=== PATIENT | male | born 1975 | race Caucasian/White ===

== ENCOUNTER 2019-07-18 08:28 | Observation (INO) ==
[2019-07-18] MEDS ORDERED: ZOFRAN IV ONE ×2 (08:50→09:47)
[2019-07-18] MEDS ORDERED: NS 1,000 ML IV ONE (08:50)
[2019-07-18 09:11] LABS: BASO# 0.02 X1000 (0.0-0.2); BASO% 0.1 % (0.0-0.8); EOS# 0.03 X1000 (0.0-0.7); EOS% 0.2 % (0.0-10.0); HEMATOCRIT 43.1 % (42.0-52.0); HEMOGLOBIN 14.7 g/dL (14.0-18.0); IMM GRAN# 0.02 X1000 (0.0-0.04); IMM GRAN% 0.1 % (0.0-0.5); LYMPH# 1.31 X1000 (1.2-3.4); LYMPH% 9.3 % (20.5-51.1); MCH 30.4 PG (27-31); MCHC 34.1 g/dL (33-37); MONO# 0.83 X1000 (0.11-0.59); MONO% 5.9 % (1.7-9.3); MPV 12.4 FL (7.4-10.4); NEUT# 11.84 X1000 (1.4-6.5); NEUT% 84.4 % (42.2-75.2); PLT 212 X1000 (130-400); RBC 4.84 XMIL (4.7-6.1); RDW 13.1 % (11.5-14.5); WBC 14.05 X1000 (4.8-10.8)
[2019-07-18 09:41] LABS: AGAP 15; ALBUMIN 4.6 g/dL (3.5-5.0); ALKALINE PHOSPHATASE 66 U/L (32-122); BUN 14 mg/dL (8-22); CALCIUM 10.2 mg/dL (8.8-10.2); CHLORIDE 101 mmol/L (98-107); COSMO 282; CREATININE 0.9 mg/dL (0.7-1.2); ESTIMATED GFR > 60; GLUCOSE 132 mg/dL (70-104); GOT 30 U/L (10-34); GPT 25 U/L (10-44); LIPASE 40 U/L (13-60); POTASSIUM 3.5 mmol/L (3.5-5.1); SODIUM 140 mmol/L (136-145); TCO2 25 mmol/L (25-35); TOTAL PROTEIN 7.1 g/dL (6.3-8.3)
[2019-07-18 09:47] LABS: BILIRUBIN URINE NEGATIVE (NEGATIVE); BLOOD URINE NEGATIVE (NEGATIVE); CLARITY SL. CLOUDY (CLEAR); COLOR YELLOW; GLUCOSE URINE NEGATIVE (NEGATIVE); KETONE URINE 2+(Moderate) mg/dL (NEGATIVE); LEUKOCYTES URINE 1+ (NEGATIVE); NITRITE URINE NEGATIVE (NEGATIVE); PROTEIN URINE 1+(30 mg/dL) mg/dL (NEGATIVE); UROBILINOGEN URINE 4 mg/dL
[2019-07-18 09:49] LABS: URINE BACTERIA 2+ /HFP; URINE CAST NONE SEEN /LPF; URINE CRYSTAL NONE SEEN /HPF; URINE EPITHELIAL CELLS <10 /HPF (<10); URINE RBC <10 /HPF (<10); URINE SOURCE CLEAN CATCH; URINE YEAST NONE SEEN /HPF
[2019-07-18 10:04] LABS: UR AMPHETAMINES QUAL NONE DETECTED (NONE DETECT); UR BARBITUATES QUAL PRESUMPTIVE POSITIVE (NONE DETECT); UR BENZODIAZEPIN QUAL NONE DETECTED (NONE DETECT); UR CANNABINOIDS QUAL PRESUMPTIVE POSITIVE (NONE DETECT); UR COCAINE QUAL NONE DETECTED (NONE DETECT); UR METHADONE QUAL NONE DETECTED (NONE DETECT); UR METHAMPHETAMINE QUAL NONE DETECTED (NONE DETECT); UR OPIATES QUAL NONE DETECTED (NONE DETECT); UR OXYCODONE QUAL NONE DETECTED (NONE DETECT); UR PCP QUAL NONE DETECTED (NONE DETECT); UR PROPOXYPHENE QUAL NONE DETECTED (NONE DETECT); UR TCA QUAL NONE DETECTED (NONE DETECT)
--- NOTE | 2019-07-18 10:40 | PROVIDER DOCUMENTATION ---
This chart was entered by Abigail Badillo Scribe, acting as scribe for Mau Moore MD. HPI-Abdominal Pain/GI Problem - General Chief Complaint: Nausea/Vomiting Stated Complaint: THROWING UP Time Seen by Provider: 07/18/19 08:50 Source: patient, family (mother and stepfather) Allergies/Adverse Reactions: Patient Allergies Allergy/AdvReac Type Severity Reaction Status Date / Time Penicillins Allergy Severe ANAPHYLAXIS Verified 07/18/19 09:02 Home Medications: Home Medication List Medication Instructions Recorded Confirmed Last Taken Type Lisinopril/Hydrochlorothiazide 1 each PO DAILY 04/15/14 07/18/19 Unknown History [Lisinopril-Hctz 20-12.5 mg Tab] Omeprazole 40 mg PO DAILY 04/15/14 07/18/19 Unknown History Zoloft 200 mg PO DAILY 04/15/14 07/18/19 Unknown History Famotidine [Pepcid] 20 mg PO DAILY #30 tab 07/16/19 07/18/19 Unknown Rx Ondansetron Odt [Zofran Odt] 4 mg PO Q6H PRN PRN #15 tab 07/16/19 07/18/19 Un known Rx Pantoprazole [Protonix] 40 mg PO DAILY@0700 #30 tab 07/16/19 07/18/19 Unknown Rx Pramipexole [Mirapex] 1 mg PO HS 07/16/19 07/18/19 Unknown History - History of Present Illness-ABD Nature of Presenting Problems: 43 yowm presents to the ed with c/o n/v/d. pt was seen in ed with same complaint on 07/16/19. mother is with pt and sts pt is under a lot of stress going through a divorce and has been drinking daily. pt is an alcoholic per mother, she is also fearful that pt is taking drugs but does not know what kind. pt denies this and sts has not been drinking or doing drugs. pt is anxious on exam. pt has noted bradycardia in 40's duriong ed stay Abdominal Pain Onset Location: reports: generalized abdomen Quality of Pain: reports: cramping Severity in ED: reports: moderate Onset/Duration: reports: other (07/16/19) Timing: reports: still present, intermittent Activities at Onset: reports: light activity Modifying Factors: improves with: nothing Associated Symptoms: reports: diarrhea, malaise, nausea, vomiting. denies: back/neck pain, chest pain, diaphoresis, fever/chills Last BM: this morning Dark Stools Present?: reports: none noticed Rectal Bleeding: reports: none # of Diarrhea Episodes: 1 Rectal Pain: reports: none # of Vomiting Episodes: 20 (in last 24hrs) Emesis Description: reports: none Bruising or Bleeding Gums?: No Similar Symptoms Previously?: Yes Recently seen or treated by another doctor?: Yes (seen in ed 07/16/19) Review of Systems - Adult - REVIEW OF SYSTEMS - ADULT Constitutional: denies: chills, fever Eyes: reports: no symptoms reported Ears, Nose, Mouth & Throat: reports: no symptoms reported Cardiovascular: denies: chest pain, edema, palpitations Respiratory: denies: cough, shortness of breath, wheezing Gastrointestinal: reports: see HPI, abdominal pain, diarrhea, nausea, vomiting Genitourinary: reports: no symptoms reported Musculoskeletal: denies: back pain, neck pain Integumentary: reports: no symptoms reported Neurological: reports: no symptoms reported Psychiatric: reports: see HPI, alcohol/drug dependence (per mother) Endocrine: reports: no symptoms reported Hematologic/Lymphatic: reports: no symptoms reported Allergic/Immunologic: reports: no symptoms reported All Other Systems: Reviewed and Negative Past History - Adult - PAST MEDICAL HISTORY-ADULT Review of Records: reports: Old Records Reviewed, Nursing Assessment Review, Medications Reviewed, Social history reviewed & non-contributory. Major Childhood Illnesses: reports: denies history Cardiovascular: reports: HTN Respiratory: reports: denies history Gastrointestinal: reports: denies history Genitourinary: reports: denies history Musculoskeletal: reports: denies history Hand Dominance: Right Handed Neurological: reports: denies history Psychiatric: reports: depression Endocrine/Immune: reports: denies history Other Conditions: reports: denies history - PRIOR SURGERIES/PROCEDURES Surgical/Procedure History: reports: orthopedic (extremity) - IMMUNIZATION STATUS Childhood Immunizations: See Nurse Assessment Flu Vaccine: See Nurse Assessment - FAMILY HISTORY Family History: reviewed, not pertinent - SOCIAL HISTORY Smoking: cigarettes, less than 1 pack/day Provider spent 3-5 mins advising pt. on dangers of tobacco.: Discussed manners to quit use, and f/u contacts for add'l counseling. Substance Use: alcohol (etoh abuse by mother), other (mother sts she is fearful he is doing drugs as well) Alcohol Use Frequency: every day (per mother but pt denies) Living Situation: alone Physical Exam-General - PHYSICAL EXAM-ADULT Initial Vital Signs Reviewed: Yes - CONSTITUTIONAL General Appearance: alert, mild distress, anxious - EYES Eyes: PERRL/EOMI, pale conjunctivae - HEAD, EARS, NOSE, MOUTH & THROAT HENMT: negative: moist mucous membranes (dry oral) - NECK Neck: non-tender, full range of motion, normal inspection - RESPIRATORY Respiratory: chest non-tender, lungs clear, normal breath sounds - CARDIOVASCULAR Cardiovascular: normal peripheral pulses, bradycardia (43) - GASTROINTESTINAL (ABDOMEN) Abdominal Exam: normal bowel sounds, non tender (pt denies any tenderness or pain on exam), soft, no organomegaly, no pulsatile mass, other (c/o nausea) - GENITOURINARY Male Genitalia: deferred Rectal Exam: deferred Hemoccult Exam: deferred - LYMPHATIC Lymphatic: no adenopathy - MUSCULOSKELETAL Back Exam: normal inspection, no CVA tenderness, no vertebral tenderness Extremity: normal range of motion, non-tender, normal gait - SKIN Integumentary: normal color, normal turgor, warm/dry - NEUROLOGIC Neurologic: grossly normal - PSYCHIATRIC Psych/Mental Status: normal thought content, normal thought process, oriented x 3, anxious Progress - PLAN OF CARE/RESULTS Progress/Plan/Lab Results: Vital Signs - 8 hr 07/18/19 08:34 07/18/19 09:00 07/18/19 09:15 Temperature 98 F Pulse Rate 43 L 54 L 43 L Respiratory Rate 18 20 14 Blood Pressure 172/89 172/71 158/95 O2 Sat by Pulse Oximetry 100 97 07/18/19 09:30 Temperature Pulse Rate 38 L Respiratory Rate 18 Blood Pressure 151/97 O2 Sat by Pulse Oximetry 100 Laboratory Results - last 24 hr 07/18/19 07/18/19 07/18/19 08:45 08:45 08:45 WBC 14.05 H RBC 4.84 Hgb 14.7 Hct 43.1 MCV 89.0 MCH 30.4 MCHC 34.1 RDW Std Deviation 13.1 Plt Count 212 MPV 12.4 H Immature Gran % (Auto) 0.1 Neut % (Auto) 84.4 H Lymph % (Auto) 9.3 L [place] % (Auto) 5.9 Eos % (Auto) 0.2 Baso % (Auto) 0.1 Immature Gran # (Auto) 0.02 Neut # (Auto) 11.84 H Lymph # (Auto) 1.31 [place] # (Auto) 0.83 H Eos # (Auto) 0.03 Baso # (Auto) 0.02 Sodium Potassium Chloride Carbon Dioxide Anion Gap BUN Creatinine Estimated GFR/1.73 m2 BUN/Creatinine Ratio Glucose Calculated Osmolality Calcium Total Bilirubin AST ALT Alkaline Phosphatase Troponin T < 0.010 Total Protein Albumin Globulin Albumin/Globulin Ratio Amylase 83 Lipase Urine Source Urine Color Urine Clarity Urine pH Ur Specific [place] Urine Protein Urine Ketones Urine Blood Urine Nitrite Urine Bilirubin Urine Urobilinogen Urine Microscopic RBC Urine WBC Urine Microscopic WBC Ur Epithelial Cells Urine Crystals Urine Bacteria Urine Casts Urine Yeast Urine Glucose 07/18/19 07/18/19 08:45 09:35 WBC RBC Hgb Hct MCV MCH MCHC RDW Std Deviation Plt Count MPV Immature Gran % (Auto) Neut % (Auto) Lymph % (Auto) [place] % (Auto) Eos % (Auto) Baso % (Auto) Immature Gran # (Auto) Neut # (Auto) Lymph # (Auto) [place] # (Auto) Eos # (Auto) Baso # (Auto) Sodium 140 Potassium 3.5 Chloride 101 Carbon Dioxide 25 Anion Gap 15 BUN 14 Creatinine 0.9 Estimated GFR/1.73 m2 > 60 BUN/Creatinine Ratio 16 Glucose 132 H Calculated Osmolality 282 Calcium 10.2 Total Bilirubin 1.30 H AST 30 ALT 25 Alkaline Phosphatase 66 Troponin T Total Protein 7.1 Albumin 4.6 Globulin 3.0 Albumin/Globulin Ratio 2.0 Amylase Lipase 40 Urine Source CLEAN CATCH Urine Color YELLOW Urine Clarity SL. CLOUDY A Urine pH 8.0 Ur Specific [place] 1.020 Urine Protein 1+(30 mg/dL) A Urine Ketones 2+(Moderate) A Urine Blood NEGATIVE Urine Nitrite NEGATIVE Urine Bilirubin NEGATIVE Urine Urobilinogen 4 Urine Microscopic RBC <10 Urine WBC 1+ A Urine Microscopic WBC 10-20 A Ur Epithelial Cells <10 Urine Crystals NONE SEEN Urine Bacteria 2+ Urine Casts NONE SEEN Urine Yeast NONE SEEN Urine Glucose NEGATIVE Orders Category Date Time Status Saline Loc NOW Care 07/18/19 08:[address] ABD/PELVIS W/IV CONT ONLY [CT] Stat Exams 07/18/19 09:49 Ordered AMYLASE [CHEM] Stat Lab 07/18/19 08:45 Completed CBC WITH ELECTRONIC DIFF [HEME] Stat Lab 07/18/19 08:45 Completed COMPREHENSIVE METABOLIC PANEL [CHEM] Stat Lab 07/18/19 08:45 Completed LIPASE [CHEM] Stat Lab 07/18/19 08:45 Completed TROPONIN T Stat Lab 07/18/19 08:[address] W/POSS RFLX CULT [URINALYSIS] Stat Lab 07/18/19 09:35 Completed URINE CULTURE [RM] Routine Lab 07/18/19 09:49 Ordered URINE DRUG SCREEN PL Stat Lab 07/18/19 09:46 Ordered 0.9% Sodium Chloride Inj [Ns] 1,000 ml Med 07/18/19 08:50 Discontinued IV 999 mls/hr Ondansetron [Zofran] Med 07/18/19 08:50 Discontinued 4 mg IV NOW ONE Ondansetron [Zofran] Med 07/18/19 09:47 Discontinued 4 mg IV NOW ONE EKG [EKG] Stat Ther 07/18/19 08:38 Ordered Result Diagrams: 07/18/19 08:45 07/18/19 08:45 - REASSESSMENT Reassessment #1 Time Reassessed: 10:03 Status: improving (dr at bedside and speaking with pt and family about poc) - EKG 1 Time of EKG reading by physician:: 08:54 EKG Read and Signed by:: Mau Moore EKG Interpretation (*Must complete 3 of following elements*): Normal (borderline) Rate: 47 Rhythm: sinus bradycardia [place]: normal QRS: normal RI Interval: normal ST Wave: normal Comments: possible left atrial enlargement - CT/MRI 1 CT Study: Abdomen, Pelvis Impression: See EMR Report (XAM: CT ABD/PELVIS W/IV CONT ONLY - 07/18/2019 HISTORY: nausea/vomiting TECHNIQUE: CT abdomen/pelvis with intravenous contrast COMPARISON: None. FINDINGS: The visualized lung bases are clear. There is mild hepatosplenomegaly. There is no discrete focal hepatic or splenic lesion identified, other than splenic calcified granulomas from old granulomatous disease. There is nonspecific mild fullness of the adrenal glands. There are no abnormalities of the pancreas identified. There are no calcified gallstones or pericholecystic inflammation identified. There is a 3.4 x 3.1 cm lobulated low-density lesion at the lower left kidney. While this could represent a cyst, with lobulated margins are somewhat unusual for recent is. There are scattered smaller low-density lesions compatible with cysts elsewhere in the bilateral kidneys. There is no hydronephrosis. The urinary bladder sorensen appear thickened diffusely. There are prosthetic calcifications noted. There are no substantially enlarged lymph nodes identified. There are some lumbar spine degenerative changes noted. There is no evidence of bowel obstruction. The appendix is unremarkable. There is mild colonic diverticulosis. There is no indication of diverticulitis. There is a suggestion of relatively diffuse mild wall thickening along the colon and rectum, which may relate to mild colitis. There is no free air, free fluid, or abscess identified. IMPRESSION: Mild hepatosplenomegaly. Small bilateral renal cysts. 3.4 x 3.1 cm lobulated low- density lesion at lower left kidney which possibly may represent an unusual cyst. Correlation with renal ultrasound is recommended. Diffusely thickened urinary bladder sorensen. No hydronephrosis. No bowel obstruction. Unremarkable appendix. Uncomplicated colonic diverticulosis. Possible mild diffuse colitis. This exam was performed using automated exposure control, adjustment of mA or kV according to patient size, and/or use of iterative reconstruction technique. Electronically signed by Jeromy Mcnally 07/18/2019 12:13 PM 07/18/19 1213 Interpreting Physician: Jeromy Mcnally MD Dictated Date/Time: 07/18/19 1202 cc: Mau Moore MD; Kobe Bush MD) - CONSULTS/PCP/HOSPITALIST Notification #1 *Consult/PCP/Hospitalist*: hospitalist dr bush Time Discussed: 10:30 Consult Disposition: Will see in ED, Admit #2 Consult: dr bush Time Discussed: 12:43 Reason/Comments: at bedside speaking with pt Departure - Departure Date of Disposition Decision: 07/18/19 Time of Disposition Decision: 10:39 DIAGNOSIS: Non-intractable vomiting with nausea, Cannabinoid hyperemesis syndrome, Substance abuse, Bradycardia Disposition: ADMITTED INPATIENT 09 Certified Medical Emergency: Emergent Condition: Fair Referrals and Follow-Ups: Kobe Bush MD [Primary Care Provider] - - Critical Care Note This patient required my direct & personal management of CC.: No Attestation - Physician/ PERFECTO Attestation Patient care was provided by Advanced Practice Provider:: No The physician spent face to face time with patient:: Yes Advanced Practice Provider documentation review:: Supervising physician onsite and consulted in the evaluation and care of this patient. The physician did have a face to face encounter with the patient. This chart was documented by the indicated scribe, (Abigail Badillo Scribe) and accurately reflects the services I performed and decisions made by me, Mau Moore MD, as attested by the provider's signature.
--- NOTE | 2019-07-18 10:47 | EKG Report ---
Test Performed on : 07/18/2019 08:54:42 AM Test Reason : bradycardia Blood Pressure : / mmHG Vent. Rate : 047 BPM Atrial Rate : 047 BPM P-R Int : 180 ms QRS Dur : 080 ms QT Int : 460 ms P-R-T Axes : 074 071 058 degrees QTc Int : 407 ms Sinus bradycardia. Possible Left atrial enlargement Borderline ECG When compared with ECG of 09-MAY-2013 10:37, Vent. rate has decreased BY 38 BPM Unconfirmed Result
--- NOTE | 2019-07-18 12:15 | Diag Imaging Result Doc PS360 ---
EXAM: CT ABD/PELVIS W/IV CONT ONLY - 07/18/2019 HISTORY: nausea/vomiting TECHNIQUE: CT abdomen/pelvis with intravenous contrast COMPARISON: None. FINDINGS: The visualized lung bases are clear. There is mild hepatosplenomegaly. There is no discrete focal hepatic or splenic lesion identified, other than splenic calcified granulomas from old granulomatous disease. There is nonspecific mild fullness of the adrenal glands. There are no abnormalities of the pancreas identified. There are no calcified gallstones or pericholecystic inflammation identified. There is a 3.4 x 3.1 cm lobulated low-density lesion at the lower left kidney. While this could represent a cyst, with lobulated margins are somewhat unusual for recent is. There are scattered smaller low-density lesions compatible with cysts elsewhere in the bilateral kidneys. There is no hydronephrosis. The urinary bladder sorensen appear thickened diffusely. There are prosthetic calcifications noted. There are no substantially enlarged lymph nodes identified. There are some lumbar spine degenerative changes noted. There is no evidence of bowel obstruction. The appendix is unremarkable. There is mild colonic diverticulosis. There is no indication of diverticulitis. There is a suggestion of relatively diffuse mild wall thickening along the colon and rectum, which may relate to mild colitis. There is no free air, free fluid, or abscess identified. IMPRESSION: Mild hepatosplenomegaly. Small bilateral renal cysts. 3.4 x 3.1 cm lobulated low-density lesion at lower left kidney which possibly may represent an unusual cyst. Correlation with renal ultrasound is recommended. Diffusely thickened urinary bladder sorensen. No hydronephrosis. No bowel obstruction. Unremarkable appendix. Uncomplicated colonic diverticulosis. Possible mild diffuse colitis. This exam was performed using automated exposure control, adjustment of mA or kV according to patient size, and/or use of iterative reconstruction technique. Electronically signed by Jeromy Mcnally 07/18/2019 12:13 PM
[2019-07-18] MEDS ORDERED: TYLENOL PO PRN (13:05)
[2019-07-18] MEDS ORDERED: ZOFRAN ODT PO PRN (13:06)
[2019-07-18] MEDS ORDERED: ZOFRAN ONE (13:35)
[2019-07-18] MEDS: ZOFRAN IV PRN ×2 (13:43→17:50)
[2019-07-18] MEDS: NS 1,000 ML IV SCH ×2 (13:44→21:44)
--- NOTE | 2019-07-18 13:54 | Diag Imaging Result Doc PS360 ---
EXAM: US RENAL 1 (LIMITED)-LEFT - 07/18/2019 HISTORY: ? cyst - see CT scan TECHNIQUE: Ultrasound left kidney COMPARISON: 07/18/2019 CT abdomen/pelvis FINDINGS: The left kidney measures 13.1 x 5.9 x 5.4 cm in size, and has cortical thickness of approximately 1.4 cm. There is a 2.9 x 3.2 x 3.3 cm cystic lesion with lobulated margins at the lower left kidney. Other than the lobulated margins, this appears to represent a simple cyst. There is also a 1.4 cm simple cyst at the lower left kidney. There is no solid appearing renal mass, stone, or hydronephrosis. IMPRESSION: 2.9 x 3.2 x 3.3 cm cyst at lower left kidney. Follow-up by ultrasound in 4-6 months is recommended. Electronically signed by Jeromy Mcnally 07/18/2019 1:52 PM
[2019-07-18] MEDS ORDERED: REGLAN IV ONE (18:30)
[2019-07-18] MEDS ORDERED: SODIUM CHLORIDE 0.9% INJ PRN (18:31)
[2019-07-18] MEDS ORDERED: PHENERGAN IV PRN (18:31)
--- NOTE | 2019-07-18 19:05 | HISTORY AND PHYSICAL ---
CHIEF COMPLAINT: Nausea, vomiting. HISTORY OF PRESENT ILLNESS: The patient is a 43-year-old male who presented to the ER with nausea, vomiting, and abdominal pain. States he has been sick off and on for the past couple of days. The last day or two has been much worse. He has been unable to keep anything down. Notes that he has been under lot of stress. He is undergoing a divorce, has been drinking daily. Denies any blood in his emesis. He has had diarrhea and abdominal pain. Denies any fevers or chills. ALLERGIES: Penicillin. MEDICATIONS: 1. Lisinopril/hydrochlorothiazide 20/12.5. 2. Omeprazole. 3. Zoloft. 4. Pepcid. 5. Zofran. 6. Protonix. 7. Mirapex. REVIEW OF SYSTEMS: As noted above. Positive abdominal pain, nausea, vomiting, and diarrhea. He has had generalized weakness. He has had decreased activity, decreased oral intake. He has had cramping. Denies any fevers, chills, cough, congestion. Denies headaches, blurred vision, change in vision. Denies any focalized numbness, tingling, or weakness in his extremities. Denies any dysuria, frequency, urgency, hesitancy, polyuria, or polydipsia. Denies skin rashes, weight loss, or weight gain. PAST MEDICAL HISTORY: Significant for depression, hypertension. He has had orthopedic surgery. FAMILY HISTORY: Noncontributory. SOCIAL HISTORY: The patient smokes daily, close to a pack a day. He does drink frequently and drinks most days. His urine drug screen was positive for marijuana as well. PHYSICAL EXAMINATION: VITAL SIGNS: Reviewed. Temperature 98 degrees, pulse 40s to 50s, respiratory 20, blood pressure is stable. GENERAL: Patient is awake, alert. He is somewhat ill-appearing secondary to nausea and pain. He is alert and oriented x3. HEENT: Normocephalic. NECK: Supple. CARDIOVASCULAR: Bradycardia. No murmurs. CHEST: Clear, nonlabored. No wheezing. ABDOMEN: Soft, diffusely tender. Positive bowel sounds. Nondistended. EXTREMITIES: Moves all extremities. No edema. NEUROLOGIC: No focal changes. SKIN: Warm, dry. No rashes. ASSESSMENT: 1. Leukocytosis. White count at 14. 2. Hyperglycemia. Blood sugar at 132. 3. Gastroenteritis, most likely viral versus hyperemesis due to cannabis. 4. Positive urine drug screen for cannabis. 5. Chronic alcohol ingestion. 6. Chronic tobacco abuse. 7. Hypertension. 8. Depression. PLAN: We are going to admit patient to the hospital, IV fluids, monitor him for withdrawal. Discussed with him the importance of stopping smoking. He does have a small renal cyst-appearing lesion on his left kidney. We are going to check an ultrasound to ascertain that this is nothing more than a cyst. He has bradycardia, unclear as to the cause. We are certainly going to follow this, place him on telemetry, and we will follow. cc: Kobe Bush MD
[2019-07-18] MEDS ORDERED: MIRAPEX PO SCH (21:00)
[2019-07-19 05:51] VITALS: BP 129/72
[2019-07-19 05:53] LABS: HEMATOCRIT 39.7 % (42.0-52.0); MCH 29.2 PG (27-31); MCHC 32.7 g/dL (33-37); MCV 89.2 FL (81-99); MPV 12.2 FL (7.4-10.4); RBC 4.45 XMIL (4.7-6.1)
[2019-07-19] MEDS: NS 1,000 ML IV SCH (05:57)
[2019-07-19 06:16] LABS: AGAP 10; ALBUMIN 3.5 g/dL (3.5-5.0); ALKALINE PHOSPHATASE 50 U/L (32-122); BUN 11 mg/dL (8-22); CALCIUM 9.3 mg/dL (8.8-10.2); CHLORIDE 107 mmol/L (98-107); COSMO 284; CREATININE 0.8 mg/dL (0.7-1.2); ESTIMATED GFR > 60; GLUCOSE 95 mg/dL (70-104); GOT 22 U/L (10-34); GPT 26 U/L (10-44); POTASSIUM 3.3 mmol/L (3.5-5.1); SODIUM 143 mmol/L (136-145); TCO2 26 mmol/L (25-35)
[2019-07-19] MEDS ORDERED: PROTONIX PO SCH (07:00)
[2019-07-19] MEDS ORDERED: PRILOSEC PO SCH (07:00)
[2019-07-19] MEDS ORDERED: KLOR-CON PO ONE (07:20)
[2019-07-19] MEDS ORDERED: ZOLOFT PO SCH (09:00)
--- NOTE | 2019-07-20 02:33 | DISCHARGE SUMMARY ---
ADMISSION DATE: 07/18/2019 DISCHARGE DATE: 07/20/2019 DISCHARGE DIAGNOSIS: 1. Nausea, vomiting. 2. Abdominal pain. 3. Leukocytosis. 4. Hyperglycemia. 5. Polysubstance use and abuse. 6. Chronic alcohol use and abuse. 7. Depression. 8. Hypertension. CONSULTATIONS: None. PROCEDURES: None. BRIEF HOSPITAL COURSE: The patient is a 43-year-old male who presented to the ER with intractable nausea, vomiting. He was admitted to the hospital, given IV fluids. Thankfully, over time his symptoms continued to improve. On discharge, he is awake, alert, oriented. He is in no respiratory distress. DISPOSITION: Patient will be discharged home. Discussed with him that he needs to cut down on alcohol as well as cut out marijuana. Discussed that marijuana alone could be the cause of his significant nausea, vomiting. We are going to continue his home medications. Discussed with him the perils of smoking and follow up outpatient treatment facility of choice. cc: Kobe Bush MD
--- NOTE | 2019-07-20 08:12 | DISCHARGE SUMMARY ---
ADMISSION DATE: 07/18/2019 DISCHARGE DATE: 07/19/2019 PERTINENT PROCEDURES: Abdomen and pelvis CT. Mild hepatosplenomegaly. Small bilateral renal cysts. Possible mild diffuse colitis. Renal ultrasound showed 2.9 x 3.2 x 3.3 cm cyst of the left lower kidney. Followup with ultrasound in 4 to 6 months is recommended. DISCHARGE DIAGNOSES: 1. Gastroenteritis most likely viral versus hyperemesis due to cannabis, improved. 2. Leukocytosis, resolved. 3. Hypercholesteremia, improved. Blood sugar on the day of discharge 95. 4. Positive urine drug screen for cannabis. 5. Alcohol ingestion. 6. Tobacco abuse. 7. Depression. HOSPITAL COURSE: Briefly, Mr. Bahena is a 43-year-old male who presented to the ED with nausea, vomiting and abdominal pain, significant past medical history for depression, hypertension, stated he had been sick on and off for the past couple of days, but over the previous two days had felt worse. He was unable to keep anything down, noted being under a lot of stress, undergoing divorce and had been drinking daily. Denied any blood in his emesis,but he did have diarrhea and abdominal pain. No fever or chills. He was admitted to the hospital, initiated on IV fluids, monitored for withdrawal. Did discuss the importance of abstinence as well as smoking cessation. Of note, he does have a small renal cyst that is confirmed with ultrasound of the renal cyst and recommend followup in three months. He is appropriate for discharge home today. VITAL SIGNS: Temperature is 98.3, heart rate 52, respirations 20, blood pressure 129/72, O2 saturation is 100% on room air. DISCHARGE DIET: Regular. DISCHARGE MEDICATIONS: 1. Lisinopril/hydrochlorothiazide one each p.o. daily. 2. Mirapex 1 mg p.o. at bedtime. 3. Prilosec 40 mg p.o. daily. 4. Zoloft 200 mg p.o. daily. 5. Zofran ODT 4 mg p.o. q.6 hours p.r.n. followup. DISPOSITION: Mr. Bahena is being discharged home with self care. He is educated on abstinence as well as smoking cessation and the need to quit as well as marijuana. He is to take all medications as prescribed. He can return to the ED or call 911 for any worsening of symptoms. Dictated by ALAYNA Garrido for Kobe Bush MD cc: Kobe Bush MD
== END 2019-07-19 10:15 | disposition home or self-care (01) ==
LOC: P.ED 08:28 → P.MEDSURG 08:28
PROVIDERS: ATTEND Family Medicine